=== PATIENT | male | born 1995 | race Hispanic/Latino ===

== ENCOUNTER 2018-12-13 10:30 | Outpatient (CLI) | payer BC ==
--- NOTE | 2018-12-13 11:11 | RAD ---
XR Femur Rt 2 View STANDARD HISTORY: Right leg pain COMPARISON: None. FINDINGS: There are no signs of fracture. No lytic or blastic bony change. No abnormalities of the hi p or knee. IMPRESSION: Unremarkable right femur.
== END 2018-12-13 10:31 | disposition home or self-care (01) ==
LOC: BICRAD 10:30
PROVIDERS: ATTEND Family Medicine
DX: M79.604 Pain in right leg (principal)

== ENCOUNTER 2019-08-11 00:48 | Emergency (ER) | payer BC, OTHER | END 2019-08-11 01:13 | LOC: ERS 00:48 | DX: F10.129 Alcohol abuse with intoxication, unspecified (principal) | CPT/HCPCS: 99283 ==

== ENCOUNTER 2024-11-11 18:01 | Emergency (ER) | payer BC, SELFPAY ==
[2024-11-11 20:33] LABS: Bacteria/HPF None Seen HPF (None Seen); CAUTI Indications for Culture Pelvic or flank pain; Glucose, Urine (Dipstick) Normal (Negative); Leukocyte Negative Leu/uL (Negative); Protein, Urine (Dipstick) 30 mg/dL (Neg-Trace); RBC/HPF 0-3 HPF (0-3); Specific Gravity, Urine 1.033 (1.002-1.036); WBC/HPF 0-3 HPF (0-3)
[2024-11-11 20:35] LABS: Urine Culture Reflex No No
== END 2024-11-11 20:50 | disposition left against medical advice (07) ==
LOC: ERS 18:01
DX: Z53.21 Procedure and treatment not carried out due to patient leaving prior to being seen by health care provider (principal)
CPT/HCPCS: 81001